=== PATIENT | female | born 1975 | race Caucasian/White ===

== ENCOUNTER → 2021-01-23 11:26 | Outpatient (BNVA) | payer BC, MEDICAID, SELFPAY | PROVIDERS: Family Provider Family Medicine; PCP Family Medicine; Visit Provider Specialist | DX: R20.0 Anesthesia of skin (principal); R20.2 Paresthesia of skin | CPT/HCPCS: 95908 ==

== ENCOUNTER 2021-12-27 15:06 | Outpatient (CLI) | payer MEDICAID, SELFPAY ==
--- NOTE | 2021-12-27 15:18 | MM_ITS ---
WS: [id number] BILATERAL SCREENING 3D TOMOSYNTHESIS DIGITAL MAMMOGRAM WITH CAD HISTORY: SCREENING COMPARISON: None available. Bilateral CC and MLO views submitted. Computer aided detection analyzed. Breast composition: The breasts are almost entirely fatty. No suspicious masses, microcalcifications or architectural distortion. MM/[id number] IMPRESSION: BI-RADS: 1-Negative FOLLOW UP: 1 Year Follow-up
== END 2021-12-27 15:07 | disposition home or self-care (01) ==
PROVIDERS: PCP Nurse Practitioner Family; Visit Provider Nurse Practitioner Family
DX: Z12.31 Encounter for screening mammogram for malignant neoplasm of breast (principal)
CPT/HCPCS: 77063; 77067

== ENCOUNTER → 2022-05-22 13:51 | Outpatient (BNVA) | payer MEDICAID, SELFPAY | PROVIDERS: PCP Nurse Practitioner Family; Referring Provider Nurse Practitioner Family; Visit Provider Specialist | DX: M79.7 Fibromyalgia (principal); R20.0 Anesthesia of skin; R20.2 Paresthesia of skin; E66.01 Morbid (severe) obesity due to excess calories; F32.A Depression, unspecified; G47.10 Hypersomnia, unspecified; Z68.43 Body mass index [BMI] 50.0-59.9, adult | CPT/HCPCS: 83036; 85018; 85651; 86160; 86162; 86235; 86255; 86376; 99204 ==

== ENCOUNTER → 2023-07-05 15:22 | Outpatient (BNVA) | payer MEDICAID, SELFPAY | PROVIDERS: PCP Nurse Practitioner Family; Visit Provider Obstetrics & Gynecology | DX: R30.0 Dysuria (principal) | CPT/HCPCS: 81000 ==

== ENCOUNTER 2024-02-11 11:32 | Observation (INO) | payer MEDICAID, SELFPAY ==
[2024-02-07 09:53] LABS: Basophils # 0.1 10^3/uL (0.0-0.1); Basophils % 0.9 %; Eosinophils # 0.2 10^3/uL (0.0-0.8); Eosinophils % 3.1 %; Hematocrit 39.3 % (36-47); Lymphocytes # 2.2 10^3/uL (0.8-4.8); Lymphocytes % 32.1 %; Mean Corpuscular HGB Conc 30.5 g/dL (30-55); Mean Corpuscular Volume 98.3 fl (85-98); Mean Platelet Volume 9.9 fL (7.4-10.4); Monocytes # 0.4 10^3/uL (0.2-0.9); Monocytes % 6.4 %; Neutrophils # 3.91 10^3/uL (1.8-7.7); Neutrophils % 56.9 %; Nucleated Red Blood Cells % 0 %; Platelet Count 325 10^3/cmm (157-399); Red Cell Distribution Width 13.3 % (12.1-15.1); White Blood Count 6.86 10^3/uL (3.29-11.43)
--- NOTE | 2024-02-07 09:53 | P.ANESASSM_ITS ---
Pre-Anesthetic Assessment Height/Weight: Height 1.6 m Operation Date: 02/11/24 08:30 Proposed Procedures p Laparoscopic assisted vaginal hysterectomy, bilateral salpingo-oophorectomy 07763, anterior colporrhaphy 30637, sling 94574,N81.4(Not Applicable) - Cassius West MD s Laparoscopic Salpingo Oophorectomy(Bilateral) - Cassius West MD s Sacrospinous Ligament Suspension Anterior Colporrhaphy(Not Applicable) - Cassius West MD Familial anesthetic complications: none Was Beta Sue taken within 24 hours: N/A Was Clonidine taken within 24 hours: N/A Social No alcohol and No tobacco Exam alert, oriented x 3, clear to auscultation bilaterally and regular rate & rhythm Airway Submandibular: within normal limits Cervical ROM: within normal limits Mallampati: Class II Dentition: full GI Gastroesophageal Reflux Disease Metabolic Morbid Obesity and Thyroid Disease [facility] [place] Fibromyalgia and Osteoarthritis/DJD Neuropsych Anxiety, Depression and Neuropathy Anesthetic Plan ASA status: 3 Anesthesia: General Medications/Allergies Home Medications Medication Instructions Recorded Confirmed Last Taken Type baclofen 10 mg tablet 10 mg PO .HS 01/23/21 02/07/24 02/06/24 History gabapentin 300 mg capsule 300 mg PO TID 01/23/21 02/07/24 02/06/24 History levothyroxine 150 mcg capsule 150 mcg PO DAILY 01/23/21 02/07/24 02/06/24 History omeprazole 20 mg tablet,delayed 20 mg PO DAILY 01/23/21 02/07/24 02/06/24 History release duloxetine 40 mg capsule,delayed 40 mg PO DAILY 05/22/22 02/07/24 02/06/24 History release meloxicam 15 mg tablet 15 mg PO DAILY 05/22/22 02/07/24 02/06/24 History gabapentin 100 mg capsule 100 mg PO TID 11/21/22 02/07/24 02/06/24 History Allergies Allergy/AdvReac Type Severity Reaction Status Date / Time No Known Allergies Allergy Verified 02/03/24 07:57 [facility] Anesthesia Family History Mother Thyroid disease Mother Depression Father Hypertension Heart disease Father Kidney disease Father Kidney disease Father Thyroid disease Denies family history of Colon cancer Ovarian cancer Breast cancer Uterine cancer Social History Smoking and tobacco/nicotine status: never used tobacco/nicotine Data Anesthesia 02/07/24 09:37 02/07/24 09:37 Cardiac Studies: 2 No Data to Display
[2024-02-07 10:03] LABS: Urine Appearance Clear (CLEAR); Urine Color Yellow (Yellow); pH Urine 5 (5-7)
[2024-02-07 10:04] LABS: Add Urine Microscopic? YES; Bacteria Urine TRACE /hpf; Bilirubin Urine Neg (Negative); Blood Urine Trace (Negative); Glucose Urine UA Norm (Normal); Ketones Urine Negative (Negative); Leukocyte Esterase Urine Negative (Negative); Nitrate Urine Negative (Negative); Protein Urine Neg (Negative); RBC Urine RARE /hpf (0-2); Squamous Epithelial Cell Urine 0-4 /hpf (0-5); Urobilinogen Urine Norm (Negative); WBC Urine RARE /hpf (0-5)
[2024-02-07 10:10] LABS: Alanine Aminotransferase 25 U/L (0-33); Albumin Level 3.8 g/dL (3.5-5.2); Alkaline Phosphatase 67 U/L (35-105); Anion Gap 14.5 (5-19); Aspartate Amino Transferase 20 U/L (0-32); Blood Urea Nitrogen 13 mg/dL (6-20); Calcium 8.6 mg/dL (8.5-10.5); Carbon Dioxide 26 mmol/L (22-29); Chloride 102 mmol/L (98-107); Globulin 3.5 g/dL (1.3-4.6); Glomerular Filtration Rate 107.6 mL/min (90-130); Glucose 108 mg/dL (65-115); Osmolality Calculated 287 mOsm/kg (285-295); Potassium 4.5 mmol/L (3.5-5.1); Sodium 138 mmol/L (136-145); Total Bilirubin 0.3 mg/dL (0.15-1.2); Total Protein 7.3 g/dL (6.6-8.7)
[2024-02-11] VITALS (17 sets, daily range): BP systolic 127–159; BP diastolic 69–101; PULSE 86–118; RESP 12–18; TEMP 36.6–37; O2SAT 92–99; BMI 48.0
[2024-02-11 06:44] LABS: OR HCG Qualitative Urine Negative (Negative)
[2024-02-11] MEDS: enoxaparin 30 mg/0.3 mL Syringe SUBCUT (07:03)
[2024-02-11] MEDS: ondansetron 2 mg/ML SDV 2 mL 4 MG IVP (07:03)
[2024-02-11] MEDS: scopolamine 1.5 Patch 1 PATCH TRANSDERMA (07:04)
[2024-02-11] MEDS: sodium chloride 0.9% 500 ML IV (07:20)
--- NOTE | 2024-02-11 07:40 | W.PM.OPSUD ---
Surgery/Procedure H&P Update DATE OF PROCEDURE: February 11, 2024 DATE H&P PERFORMED: 02/03/24 H&P UPDATE INFORMATION: I have reviewed H&P completed within last 30 days, I have examined patient prior to procedure and No changes to prior documentation PLANNED PROCEDURE: Operation Date: 02/11/24 08:00 Proposed Procedures p Laparoscopic assisted vaginal hysterectomy, bilateral salpingo-oophorectomy 38956, anterior colporrhaphy 58236, sling 37374,N81.4(Not Applicable) - Cassius West MD s Laparoscopic Salpingo Oophorectomy(Bilateral) - Cassius West MD s Sacrospinous Ligament Suspension Anterior Colporrhaphy(Not Applicable) - Cassius West MD
[2024-02-11] MEDS: sodium chloride 0.9% 1,000 ML 30 ML IV (07:41)
[2024-02-11] MEDS: ceFAZolin 3,000 MG in sodium chloride 0.9% (100 ml) 100 ML 200 MG IV (07:42)
--- NOTE | 2024-02-11 07:52 | ANES.PAUD2 ---
Pre-Anesthetic Update Pre-Anesthetic Assessment: Date of Surgery/Procedure: 02/11/24 Proposed Procedure: Operation Date: 02/11/24 08:00 Proposed Procedures p Laparoscopic assisted vaginal hysterectomy, bilateral salpingo-oophorectomy 20969, anterior colporrhaphy 37628, sling 97906,N81.4(Not Applicable) - MD lin Browne Laparoscopic Salpingo Oophorectomy(Bilateral) - Cassius West MD s Sacrospinous Ligament Suspension Anterior Colporrhaphy(Not Applicable) - Cassius West MD Any changes to Pre-Anesthetic Assessment?: No Last Intake: Intake Last Liquid Date 02/10/24 Last Liquid Time 11:55 Last Solid Date 02/10/24 Last Solid Time 23:30 Vitals: Temperature 97.9 F 02/11/24 06:44 Temperature Source Temporal Artery S can 02/11/24 06:44 Pulse Rate 118 H 02/11/24 06:44 Respiratory Rate 18 02/11/24 06:44 Blood Pressure 150/101 02/11/24 06:44 Blood Pressure Rebekah n 117 02/11/24 06:44 Pulse Oximetry 95 02/11/24 06:44 Oxygen Delivery Me thod Room Air 02/11/24 06:51 Exam: Pre-Anes Outpt Exam: alert, oriented x 3, clear to auscultation bilaterally and regular rate & rhythm Cardiac Studies: No Data to Display
[2024-02-11] MEDS: BUPivacaine 0.5% INJ 10 mL INJECTION (08:59)
[2024-02-11] MEDS: lidocaine-epi 2% PF 1:200,000 20 mL SDV INJECTION (09:00)
--- NOTE | 2024-02-11 11:21 | W.PM.BPON ---
Date of Procedure: 02/11/24 Surgeon: Cassius West MD Supervisor Drying And Softening(s): Procedure(s) performed: Laparoscopic-assisted vaginal hysterectomy with bilateral oophorectomy, anterior colporrhaphy augmented with allograft, mid urethral sling Findings of the procedure(s): strings adhesions to the left ovary Estimated blood loss: 600ml Specimen(s) removed: uterus with left and right ovaries Post-operative diagnosis: status post total vaginal hysterectomy with bilateral oophorectomy and anterior colporrhaphy
--- NOTE | 2024-02-11 11:24 | P.OP_ITS ---
Operative Report Date of procedure: February 11, 2024 Pre-op diagnosis: cystocele with uterine prolapse Post-op diagnosis: same Procedure done: Laparoscopic assisted vaginal hysterectomy with bilateral salpingo-oophorectomy, Anterior colporrhaphy augmented with allograft Mid urethral sling Cystoscopy Implants: Coloplast Altis sling Coloplast dermis allograft Specimens removed/disposition: uterus with left and right ovaries Surgeon: Cassius West MD Estimated blood loss (mL): 600 IV fluids (mL): 1,500 Urine output (mL): 400 Complications: bleeding Findings: enlarged uterus omental adhesions to the left ovary Procedure: After informed consent, the patient was taken to the operating room where general anesthesia was administered. Pre-Procedure Time-Out verifying the correct patient identity, correct procedure verified with consent, correct site and side, correct patient position, availability of correct implants and any special equipment or requirements was performed and acknowledge by the OR team. She was placed in the dorsal lithotomy position and prepped and draped in sterile fashion. The patient was examined under anesthesia and found to have a normal uterus with normal adnexa. A Pandya catheter was placed in the bladder. A weighted speculum was placed in the vagina, and the anterior lip of cervix was grasped with the single toothed tenaculum. A uterine manipulator was advanced into the endocervical. Tenaculum was removed after uterine manipulator was secured. The speculum was removed from the vagina. The attention was brought to abdomen after changing gloves. The base of the umbilicus was grasped with an A llis clamp and with 2 towel clamp bilaterally tenting up the umbilicus an intraumbilical incision was made with a scalpel. While tenting up on the abdomen, a Verres needle with sleeve was admitted into the intra-abdominal cavity. A saline drop test was performed and noted to be within normal limits. Pneumoperitoneum was attained with 4 liters of carbon dioxide. The Verres needle was removed. Then a 5 mm Optiview trocar and cannula were inserted under direct visualization without complications. Trocars were removed and the laparoscope was inserted and connected to the video camera light source. A 5 mm trocar and cannula were placed in the right lower quadrant under direct visualization after infiltration of 0.5% Marcaine with epinephrine. A 5 mm trocar and cannula were placed in the left lower quadrant under direct visualization after infiltration of 2% lidocaine with epinephrine. The pelvic contents were visualized and noted a small uterus, deep cul-de-sac, normal bilateral fallopian tubes and ovaries, normal appendix, and both ureters were identified crossing the pelvic brim and pelvic sidewall. The left round ligament was coagulated and transected using LigaSure device. The left broad ligament was opened down to the level of the uterine artery and vein. The left infundibulopelvic ligament was coagulated using LigaSure and then transected. The right round ligament was coagulated and transected using LigaSure, and the right broad ligament was opened down to the level of the right uterine artery and vein. The right infundibulopelvic ligament was coagulated and transected using LigaSure. Peritoneum of the lower uterine segment was entered using LIGASURE, and the bladder was dissected off the lower uterine segment using blunt dissection. Careful inspection revealed complete hemostasis. A weighted speculum was placed in the posterior vaginal wall and the right-angle retractor used to visualize the cervix. The cervix was grasped across the anterior lip with a single-toothed tenaculum and circumferentially infiltrated with 1% Xylocaine with epinephrine at this time. The cervix was circumferentially excised with the scalpel. The vaginal mucosa was dissected superiorly with sharp dissection. The anterior peritoneal reflection was identified, and it was entered with Metzenbaum scissors. A posterior colpotomy was made through the cul-de-sac space. The posterior peritoneum was identified in similar fashion and Metzenbaum scissors were used to enter the cul-de-sac. At this time, a weighted speculum was placed, advanced posteriorly into the cul-de-sac. At this time, the left and right uterosacral ligaments were isolated and ligated with 0 Vicryl. The LigaSure device was then used in a serial fashion up through the cardinal ligaments bilaterally. Finally, the uterine arteries were cross-clamped, cut, and ligated with the LigaSure device. LigaSure device was then used up through the broad ligaments superiorly and finally the uterus was rotated posteriorly. The left and right tubes were then cross-clamped and ligated with LigaSure device. The uterus was excised and submitted for pathologic evaluation. At this time, [place] clamps were used to grasp the left and right ovaries, and they were removed per the patient's request. Curved Zeppelin clamps were placed across the infundibulopelvic ligaments bilaterally and curved scissors were used to excise the specimen from the Zeppelin clamp. The pedicles were doubly ligated bilaterally with 0 Vicryl and hemostasis noted to be achieved. No other abnormalities were noted in the pelvic cavity. At this time, instruments were removed from the patient's abdominopelvic cavity. Vaginal cuff closure and peritoneum were incorporated into one layer with 0 Vicryl suture in a continuous running interlocking fashion. Hemostasis was noted to be achieved. then proceeded to perform the anterior colporrhaphy and mid urethral sling. The anterior vaginal mucosa beneath the midurethra was infiltrated with 2% lidocaine with epinephrine. A vertical midline incision was made beneath the midurethra, nearly 1.5 cm length. Careful submucosal dissection was performed bilaterally up to the interior portion of the inferior pubic ramus. The insertion of adductor longus tendon on the patient?s pubic ramus was identified as reference land ragini. Palpated the notch along the internal edge of isch iopubic ramus where the adductor longus tendon and the inferior pubic ramus meet. The Altis single incision sling (SIS) was selected. Then the needle of the SIS inserted aiming at the location of this notch. One of the integrated self- fixating tips place onto the needle by sliding it over the end of the needle. The needle/sling assembly was inserted toward the location of identified reference notch making sure that the flat of the handle is perpendicular to the desired path. The needle was tracked along the posterior surface of the ischiopubic ramus until the midline ragini on the mesh is approximately at the midline position under the urethra. The needle was removed and the same was repeated on the contralateral side until the appropriate sling tension under the urethra was achieved ensuring that the mesh lays flat. The needle was removed and vaginal incision was closed in a running interlocking fashion with 2-0 Vicryl. The vaginal mucosa was then injected in the midline with normal saline. The vaginal mucosa was scored in the midline with the Bovie approximately 1 cm medial to the urethral meatus to 1 cm distal to the vaginal cuff. This vaginal mucosa was then undermined and then incised in the midline with the Metzenbaum scissors. The lateral aspects of the vaginal mucosa were then grasped with the Allis clamps and the vaginal mucosa was then dissected off the underlying fascia with the Metzenbaum scissors. Again, there was noted to be quite a bit of oozing at the incision, which was controlled with cautery. After adequate dissection was performed, bilaterally. The Coloplast dermis allograft modified at time of application to fit spacea, 3 x 3 cm piece . The allograft placed in front of cystocele ready to be implanted facing the vagina mucosa. Suture is placed at distal end of graft and placed towards vaginal cuff. Final suture is placed on proximal portion of the graft to complete the placement overlying the bladder. Then Interrupted vertical mattress sutures of 0 Vicryl were used to elevate the cystocele superiorly. The excessive vaginal mucosa was then trimmed with the Metzenbaum scissors and the vaginal mucosa was then reapproximated in the running interlocking fashion with 2-0 Vicryl. Pandya catheter was then placed yielding clear colt urine. A vaginal packi was placed to provide support during the healing process. The patient tolerated the procedure well and was taken to the recovery room in a stable condition. Sponge and needle counts were correct x3.
--- NOTE | 2024-02-11 11:50 | ANE.PACU2 ---
Inpatient post-anesthesia follow up: Airway intact: Yes Vital signs: Temperature 98.1 F Pulse Rate 97 Respiratory Rate 16 Blood Pressure 137/79 Pulse Oximetry 92 Oxygen Delivery Me thod Room Air Oxygen Flow Rate 6 Fraction of Inspir ed Oxygen Hydration adequate: Yes Nausea and vomiting: No Pain level: 1 Mental status: Baseline
[2024-02-11] MEDS: dextrose 5%-lactated ringers 1,000 ML 125 ML IV ×2 (12:19→20:15)
[2024-02-11] MEDS: ketorolac 30 mg/mL INJ IVP ×2 (12:19→18:06)
[2024-02-11] MEDS: HYDROcodone-acetaminophen 5-325 mg Tablet PO ×2 (14:02→20:51)
[2024-02-11] MEDS: gabapentin 300 mg Capsule PO ×2 (17:07→20:52)
[2024-02-11] MEDS: docusate sodium 100 mg Capsule PO (17:07)
[2024-02-11] MEDS: gabapentin 100 mg Capsule PO ×2 (17:07→20:52)
[2024-02-11] MEDS: baclofen 10 mg Tablet PO (20:51)
[2024-02-12] MEDS: ketorolac 30 mg/mL INJ IVP (00:04)
[2024-02-12] MEDS: dextrose 5%-lactated ringers 1,000 ML 125 ML IV (04:03)
[2024-02-12 05:10] VITALS: BP 151/88; PULSE 80; RESP 18; TEMP 36.6; O2SAT 98
[2024-02-12] MEDS: HYDROcodone-acetaminophen 5-325 mg Tablet PO (05:15)
[2024-02-12 05:17] LABS: Hematocrit 29.9 % (36-47); Mean Corpuscular HGB Conc 30.8 g/dL (30-55); Mean Corpuscular Hemoglobin 30.2 pg (27-33); Platelet Count 282 10^3/cmm (157-399); Red Blood Count 3.05 10^6/uL (3.85-5.65); Red Cell Distribution Width 13.7 % (12.1-15.1); White Blood Count 11.38 10^3/uL (3.29-11.43)
--- NOTE | 2024-02-12 05:41 | PC.NURSE ---
Vaginal packing removed at 0510. Pt tolerated well.
[2024-02-12 10:30] VITALS: BP 132/79; PULSE 79; RESP 17; TEMP 36.8; O2SAT 97
[2024-02-12] MEDS: docusate sodium 100 mg Capsule PO (11:03)
[2024-02-12] MEDS: pantoprazole DR 40 mg Tablet PO (11:03)
[2024-02-12] MEDS: gabapentin 100 mg Capsule PO (11:03)
[2024-02-12] MEDS: gabapentin 300 mg Capsule PO (11:03)
--- NOTE | 2024-02-12 12:14 | P.DS_ITS ---
Discharge Providers SOFTWARE SALES EXECUTIVE Date of Admission: 02/11/24 11:32 Date of Discharge: 02/12/24 Attending Provider at Admission: Cassius West MD Attending Provider at Discharge: Cassius West MD Primary Care Provider: Vinicio Shields NP Reason for Visit Reason for Visit: N81.4 Hospital Course Hospital Course Mrs. Nieves 48-year-old female G3, P3, with a history of a cystocele with uterine prolapse and pelvic pain. She was admitted for planned laparoscopic assisted vaginal hysterectomy, anterior colporrhaphy, and mid urethral sling. The procedures were performed without complication, with the exception of bleeding more than usual. observation was uneventful. She is afebrile and hemodynamically stable postoperative day 1. Tolerating diet well. Ambulating without difficulty. PVR within normal limits. She was counseled regarding pelvic rest for 6 weeks (no sex, no tampons, no vaginal douches). Return to the emergency room if any fever, increased bleeding or pain. Physical Exam Narrative: GA: Alert and oriented ?3. HEENT: WNL. Heart: Regular rate and rhythm. Lungs: Clear to auscultation bilaterally. Abdomen: Bowel sounds present, minimal tenderness, incision clean and dry, no redness, pain or edema. HAND STAPLER: Spotting bleeding. Extremities: No edema, no cyanosis, no calves pain. Urinary Catheter Management: Pandya: Cath Placed During This Visit: yes, but has since been removed by the nurse Reason for Continuing Indwelling Catheter: Decision to DC Catheter Urinary Catheter Date of Insertion: 02/11/24 Urinary Catheter Time of Insertion: 08:36 Date Urinary Catheter Removed: 02/12/24 Time Urinary Catheter Discontinued: 05:05 History History History 3 Term 3 0 Miscarriages/Ectopic 0 Living Children 3 Discharge Data Studies Completed and Pending Pending at discharge Category Date Time Status Pathology: Surgical [PTH] Routine Pth 02/11/24 09:55 Received Laboratory Results WBC 11.38 10^3/uL (3.29-11.43) 02/12/24 05:05 RBC 3.05 10^6/uL (3.85-5.65) L 02/12/24 05:05 Hgb 9.20 g/dL (11.27-16.99) L 02/12/24 05:05 Hct 29.9 % (36-47) L 02/12/24 05:05 MCV 98.0 fl (85-98) 02/12/24 05:05 MCH 30.2 pg (27-33) 02/12/24 05:05 MCHC 30.8 g/dL (30-55) 02/12/24 05:05 RDW 13.7 % (12.1-15.1) 02/12/24 05:05 Plt Count 282 10^3/cmm (157-399) 02/12/24 05:05 MPV 10.0 fL (7.4-10.4) 02/12/24 05:05 Neut % (Auto) 56.9 % 02/07/24 09:37 Lymph % (Auto) 32.1 % 02/07/24 09:37 [place] % (Auto) 6.4 % 02/07/24 09:37 Eos % (Auto) 3.1 % 02/07/24 09:37 Baso % (Auto) 0.9 % 02/07/24 09:37 Neut # (Auto) 3.91 10^3/uL (1.8-7.7) 02/07/24 09:37 Lymph # (Auto) 2.2 10^3/uL (0.8-4.8) 02/07/24 09:37 [place] # (Auto) 0.4 10^3/uL (0.2-0.9) 02/07/24 09:37 Eos # (Auto) 0.2 10^3/uL (0.0-0.8) 02/07/24 09:37 Baso # (Auto) 0.1 10^3/uL (0.0-0.1) 02/07/24 09:37 Nucleated RBC % (auto) 0 % 02/07/24 09:37 Nucleated RBCs # 0.0 /100WBC 02/07/24 09:37 Sodium 138 mmol/L (136-145) 02/07/24 09:37 Potassium 4.5 mmol/L (3.5-5.1) 02/07/24 09:37 Chloride 102 mmol/L (98-107) 02/07/24 09:37 Carbon Dioxide 26 mmol/L (22-29) 02/07/24 09:37 Anion Gap 14.5 (5-19) 02/07/24 09:37 BUN 13 mg/dL (6-20) 02/07/24 09:37 Creatinine 0.6 mg/dL (0.5-0.9) 02/07/24 09:37 GFR Calculation 107.6 mL/min (90-130) 02/07/24 09:37 Glucose 108 mg/dL (65-115) 02/07/24 09:37 Calculated Osmolality 287 mOsm/kg (285-295) 02/07/24 09:37 Calcium 8.6 mg/dL (8.5-10.5) 02/07/24 09:37 Total Bilirubin 0.3 mg/dL (0.15-1.2) 02/07/24 09:37 AST 20 U/L (0-32) 02/07/24 09:37 ALT 25 U/L (0-33) 02/07/24 09:37 Alkaline Phosphatase 67 U/L (35-105) 02/07/24 09:37 Total Protein 7.3 g/dL (6.6-8.7) 02/07/24 09:37 Albumin 3.8 g/dL (3.5-5.2) 02/07/24 09:37 Globulin 3.5 g/dL (1.3-4.6) 02/07/24 09:37 Urine Color Yellow (Yellow) 02/07/24 09:40 Urine Appearance Clear (CLEAR) 02/07/24 09:40 Urine pH 5 (5-7) 02/07/24 09:40 Ur Specific [place] 1.020 (1.005-1.030) 02/07/24 09:40 Urine Protein Neg (Negative) 02/07/24 09:40 Urine Glucose (UA) Norm (Normal) 02/07/24 09:40 Urine Ketones Negative (Negative) 02/07/24 09:40 Urine Blood Trace (Negative) H 02/07/24 09:40 Urine Nitrate Negative (Negative) 02/07/24 09:40 Urine Bilirubin Neg (Negative) 02/07/24 09:40 Urine Urobilinogen Norm mg/dL (Negative) 02/07/24 09:40 Ur Leukocyte Esterase Negative (Negative) 02/07/24 09:40 Urine RBC Rare /hpf (0-2) 02/07/24 09:40 Urine WBC Rare /hpf (0-5) 02/07/24 09:40 Ur Squamous Epith Cells 0-4 /hpf (0-5) H 02/07/24 09:40 Amorphous Sediment Not Reportable 02/07/24 09:40 Urine Bacteria Trace /hpf (NONE) 02/07/24 09:40 Urine HCG, Qual Negative (Negative) 02/11/24 06:42 Blood Type A Positive 02/11/24 07:05 Rho(D) Type Rh positive 02/11/24 07:05 Antibody Screen Negative 02/11/24 07:05 Procedures Performed Laparoscopic assisted vaginal hysterectomy with bilateral salpingo-oophorectomy, Anterior colporrhaphy augmented with allograft Mid urethral sling Cystoscopy Vitals Last Vital Signs Temp 98.3 F 02/12/24 10:30 Pulse 79 02/12/24 10:30 Resp 17 02/12/24 10:30 BP 132/79 02/12/24 10:30 Pulse Ox 97 02/12/24 10:30 O2 Del Method Room Air 02/12/24 10:30 O2 Flow Rate 6 02/11/24 11:34 Results Labs OB ([facility]): Blood Type A Positive 02/11/24 Antibody Screen Negative 02/11/24 Hct 29.9 % (36-47) L 02/12/24 Hgb 9.20 g/dL (11.27-16.99) L 02/12/24 Rho(D) Type Rh positive 02/11/24 Plt Count 282 10^3/cmm (157-399) 02/12/24 Hemoglobin A1c 5.3 % (4.0-6.0) 05/22/22 Discharge Plan Discharge Patient Disposition: Home Condition: Stable Prescriptions: New hydrocodone-acetaminophen 5-325 mg tablet 1 tab PO Q4H PRN (Reason: pain) Qty: 30 0RF acetaminophen 325 mg capsule 325 mg PO Q4H PRN (Reason: fever or pain) Qty: 60 0RF ferrous sulfate [Iron (ferrous sulfate)] 325 mg (65 mg iron) tablet 325 mg PO BID Qty: 60 0RF docusate sodium [Colace] 100 mg capsule 100 mg PO BID Qty: 60 0RF ibuprofen 800 mg tablet 800 mg PO TID PRN (Reason: pain) Qty: 60 0RF Continued gabapentin 300 mg capsule 300 mg PO TID levothyroxine 150 mcg capsule 150 mcg PO DAILY omeprazole 20 mg tablet,delayed release (DR/EC) 20 mg PO DAILY baclofen 10 mg tablet 10 mg PO .HS duloxetine 40 mg capsule,delayed release(DR/EC) 40 mg PO DAILY meloxicam 15 mg tablet 15 mg PO DAILY gabapentin 100 mg capsule 100 mg PO TID Discharge Orders: Discharge Order (Routine); Ordered 02/12/24 Ordered By: Cassius West Referrals: Cassius West MD [Physician] - (Follow up appointments: 02/26/24 @ 1:00 p.m. & 6 week follow up on 03/23/24 @ 2:45 p.m.) Discharge Diet: Usual diet Discharge Activity: Limit activity as instructed Patient Instructions: Urinary Bladder Suspension (DC), Opioid Safety (DC), Laparoscopic Hysterectomy (DC), Bladder Sling for Women (DC), Vaginal Hysterectomy (DC), OB Discharge Report, OB Food/Drug Interaction Guide, Opioid Safety Activity Restrictions/Additional Instructions: 1. Please call [facility] on next working day to make your post-operative appointment in 2 weeks. 2. Please stay home until you come back to the clinic on first post- hospatilization check up. 3. Please follow instructions on your medications CAREFULLY. 4. If you have abdominal incision, do not cover it unless dressing is necessary because of drainage. OK to shower, but avoid bath. Leave steri-strips until they fall off. If they are still on one week after surgery, you may remove them. 5. If you had vaginal surgery or vaginal repair, Dr. West may instruct you to take SITZ bath. 6. Yellow, blood tinged odorous vaginal discharge is usually normal after hysterectomy or vaginal surgeries. 7. No SEXUAL INTERCOURSE, tampons, or douches until you are completely released from the post-operative care. 8. Avoid constipation by eating right and maybe using some Metamucil or Milk of Magnesia. 9. All prescription refills are given during the working hours. Please do no wait till it runs out. Call the clinic at [phone] before your medication runs out. The clinic will get in touch with your doctor to prescribe medications if necessary. 10. Please remain within 40 mile radius from our hospital because emergencies do happen now and then during the post-operative period. 11. If you have stairs at home, take one step at a time slowly and minimize the number of trips. It helps to stay in one floor for the next few days. No lif ting except what you can lift by one hand until you are released from the post- operative care. 12. Driving is discouraged until you are well healed. It may be 3-4 weeks before you feel strong enough to drive. You should be able to turn and look through the rear window without pain and you should be able to push the brake pedal very hard without pain before you drive. No fast rules, but SAFETY should be your primary concern. DO NOT drive if you are on sedating medications such as narcotics. 13. Call the clinic (during working hours) to make urgent appointment or go to the Emergency room, if any of the following occurs: i. Vaginal bleeding becomes heavy, more than a period. ii. Incision becomes red and sore, or drains pus. iii. Your TEMPERATURE is over 100.4F or you have chill. iv. IV site becomes red and swollen (a little ``knot?? is usually OK) v. Persistent nausea and vomiting vi. Persistent constipation or diarrhea vii. Rash or allergic reaction to medications. Discharge Attestations SOFTWARE SALES EXECUTIVE Time Spent in Discharge Care*: greater than 30 min Coding Level of Care Code Acute Code for Chg Fwd
[2024-02-12 13:50] VITALS: BP 130/79; PULSE 79; RESP 17; TEMP 36.8; O2SAT 97
== END 2024-02-12 13:50 | disposition home or self-care (01) ==
LOC: OBGYN 11:34
PROVIDERS: Admitting Provider Obstetrics & Gynecology; PCP Nurse Practitioner Family; Visit Provider Obstetrics & Gynecology
PROC: 0UT9FZZ Resection of Uterus, Via Natural or Artificial Opening With Percutaneous Endoscopic Assistance (ICD-10-PCS; CPT 57240; principal; 2024-02-11 08:00)
PROC: (CPT 58661; 2024-02-11 08:00)
PROC: (CPT 57282; 2024-02-11 08:00)
PROC: (CPT 57288; 2024-02-11 08:00)
DX: N81.4 Uterovaginal prolapse, unspecified (principal); N72 Inflammatory disease of cervix uteri; K21.9 Gastro-esophageal reflux disease without esophagitis; E66.01 Morbid (severe) obesity due to excess calories; Z68.42 Body mass index [BMI] 45.0-49.9, adult; M79.7 Fibromyalgia; M19.90 Unspecified osteoarthritis, unspecified site
CPT/HCPCS: 57240; 57288; 58552; 36415; 51702; 51798; 80053; 81001; 81025; 85025; 85027; 86850; 86900; 88307; C1713; C1762; G0378; J0330; J0690; J1100; J1170; J1200; J1650; J1885; J2250; J2405; J2704; J3010; J3490; J7030; J7040; J7121

== ENCOUNTER 2024-03-09 12:31 | Outpatient (CLI) | payer MEDICAID, SELFPAY ==
--- NOTE | 2024-03-09 12:33 | MM_ITS ---
WS: [id number] BILATERAL 3D TOMOSYNTHESIS DIGITAL SCREENING MAMMOGRAPHY WITH CAD CLINICAL INFORMATION: SCREENING HISTORY: Screening mammogram. No current complaints. COMPARISON: 2021 TECHNIQUE: Bilateral CC and MLO views. FINDINGS: Scattered fibroglandular densities bilaterally. No suspicious focal mass, asymmetry, calcifications, or architectural distortion. No evidence of malignancy. MM/[place] [id number] IMPRESSION: BI-RADS: 1-Negative FOLLOW UP: 1 Year Follow-up Recommend return to annual screening mammography.
== END 2024-03-09 12:32 | disposition home or self-care (01) ==
LOC: RAD 12:32
PROVIDERS: PCP Nurse Practitioner Family; Visit Provider Family Medicine
DX: Z12.31 Encounter for screening mammogram for malignant neoplasm of breast (principal); R92.323 Mammographic fibroglandular density, bilateral breasts
CPT/HCPCS: 77063; 77067

== ENCOUNTER 2025-03-10 13:21 | Outpatient (CLI) | payer MEDICAID, SELFPAY ==
--- NOTE | 2025-03-10 13:27 | MM_ITS ---
WS: [id number] BILATERAL 3D TOMOSYNTHESIS DIGITAL SCREENING MAMMOGRAPHY WITH CAD CLINICAL INFORMATION: SCREENING HISTORY: Screening mammogram. No current complaints. COMPARISON: 2023 TECHNIQUE: Bilateral CC and MLO views. FINDINGS: Scattered fibroglandular densities bilaterally. No suspicious focal mass, asymmetry, calcifications, or architectural distortion. No evidence of malignancy. MM/MM scr BI tomosynthesis [id number] IMPRESSION: DENSITY: There are scattered areas of fibroglandular density. BI-RADS: 1 - Negative. FOLLOW UP: 1 Year Follow-up Recommend return to annual screening mammography.
== END 2025-03-10 13:22 | disposition home or self-care (01) ==
LOC: RAD 13:23
PROVIDERS: PCP Nurse Practitioner Family; Visit Provider Family Medicine
DX: Z12.31 Encounter for screening mammogram for malignant neoplasm of breast (principal)
CPT/HCPCS: 77063; 77067

== ENCOUNTER → 2025-09-10 11:58 | Outpatient (BNVA) | payer MEDICAID, SELFPAY | PROVIDERS: PCP Nurse Practitioner Family; Visit Provider Nurse Practitioner Women's Health | DX: E89.40 Asymptomatic postprocedural ovarian failure (principal) | CPT/HCPCS: 82670 ==